=== PATIENT | female | born 1975 | race Caucasian/White ===

== ENCOUNTER → 2017-06-22 | Outpatient (CLI) | payer BC, OTHER | END | disposition home or self-care (01) | LOC: CDC 14:15 | DX: Z01.810 Encounter for preprocedural cardiovascular examination (principal); G56.02 Carpal tunnel syndrome, left upper limb | CPT/HCPCS: 93000 ==

== ENCOUNTER 2018-03-09 17:38 | Emergency (ER) | payer BC ==
[~2018-03-09] VITALS: Ht 154.9 cm; Wt 69.6 kg
[2018-03-09 18:25] LABS: HEMATOCRIT 38.2 % (36.0-46.0); HEMOGLOBIN 13.3 G/DL (11.9-15.5); MCH 29.9 PG (29.0-34.0); MCHC 34.8 G/DL (30.0-36.0); MCV 85.8 FL (83-99); PLATELET COUNT 303 K/uL (156-360); RBC DIS.WIDTH-CV 12.6 % (11.8-14.6); RBC DIS.WIDTH-SD 39.7 % (39-53); RED BLOOD COUNT 4.45 M/uL (3.80-5.20); WHITE BLOOD COUNT 7.8 K/uL (4.1-10.2)
[2018-03-09 18:38] LABS: CHLORIDE 106 MEQ/L (99-109); POTASSIUM 3.8 MEQ/L (3.7-5.4); SODIUM 138 MEQ/L (136-147)
[2018-03-09 18:43] LABS: CREATININE 0.8 MG/DL (0.6-1.3); GFR ESTIMATE (CALCULATED) > 59 mL/min/; GLUCOSE 99 mg/dL (70-99); UREA NITROGEN (BUN) 16 mg/dL (9-23)
[2018-03-09] MEDS ORDERED: VENTOLIN HFA18 GM IH (20:04)
[2018-03-09 20:12] VITALS: BP 140/102
== END 2018-03-09 20:13 | disposition home or self-care (01) ==
LOC: EME 17:38
PROVIDERS: Physician Assistant
DX: T59.4X1A Toxic effect of chlorine gas, accidental (unintentional), initial encounter (principal); J70.8 Respiratory conditions due to other specified external agents; I10 Essential (primary) hypertension; E78.5 Hyperlipidemia, unspecified; Z87.891 Personal history of nicotine dependence; Z98.51 Tubal ligation status
CPT/HCPCS: 71046; 80048; 85027; 94640; 99281; 99284